=== PATIENT | male | born 1970 | race Caucasian/White ===

== ENCOUNTER 2019-12-18 17:20 | Emergency (ER) | payer SELFPAY ==
[~2019-12-18] VITALS: Ht 167.6 cm; Wt 72.6 kg
[2019-12-18 17:20] VITALS: BP_SYST 132
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
--- NOTE | 2019-12-18 17:32 | NUR ---
DR NYE AT CHAIRSIDE FOR EVALUATION
[2019-12-18 17:45] VITALS: BP_SYST 132
--- NOTE | 2019-12-18 17:45 | NUR ---
0Patient given written and verbal discharge instructions and verbalizes understanding. ER MD Sorensen discussed with patient the results and treatment provided. Patient in stable condition. No Rx given. Patient educated on pain management and to follow up with PMD. Pain Scale 0. Opportunity for questions provided and answered. Medication side effect fact sheet provided.
== END 2019-12-18 17:45 ==
LOC: SED 17:20
DX: Z02.89 Encounter for other administrative examinations (principal); M79.602 Pain in left arm
CPT/HCPCS: 99283